=== PATIENT | female | born 1935 | race Caucasian/White ===

== ENCOUNTER → 2016-03-29 | Outpatient (CLI) | payer OTHER ==
[~2016-03-29] MED LIST: ARMOUR THYROID60 M1 PO; FOSAMAX 70 MG T70 MG PO; IBUPROFEN200 M2 PO; MAGNESIUM CITR100 MG PO; PROTONIX40 M1 PO; RESTORIL15 MG PO; TYLENOL325 MG PO; VITAMIN D1000 UNI1 PO
== END ==
LOC: RAD 14:10
DX: M47.814 Spondylosis without myelopathy or radiculopathy, thoracic region (principal); M47.816 Spondylosis without myelopathy or radiculopathy, lumbar region; M54.9 Dorsalgia, unspecified

== ENCOUNTER → 2016-07-04 | Outpatient (CLI) | payer OTHER | LOC: RAD 14:01 | DX: R05 Cough (principal) ==

== ENCOUNTER 2016-07-16 12:57 | Emergency (ER) | payer OTHER ==
[~2016-07-16] VITALS: Ht 160 cm; Wt 44.0 kg
[2016-07-16] MEDS ORDERED: PREDNISONE 20 M20 MG PO (14:21)
[2016-07-16] MEDS ORDERED: CYCLOBENZAPRINE5 MG PO (14:21)
[2016-07-16] MEDS ORDERED: CITRATE OF MAG296 ML PO (14:27)
[2016-07-17] MEDS ORDERED: CLARITIN10 MG PO (11:26)
[2016-07-17] MEDS ORDERED: NASACORT10.8 ML NS (11:27)
== END 2016-07-16 15:05 | disposition home or self-care (01) ==
LOC: ER 12:57
DX: M53.3 Sacrococcygeal disorders, not elsewhere classified (principal); K58.9 Irritable bowel syndrome, unspecified; E03.9 Hypothyroidism, unspecified; Z88.8 Allergy status to other drugs, medicaments and biological substances

== ENCOUNTER 2016-07-17 03:56 | Inpatient (IN) | payer OTHER ==
[~2016-07-17] VITALS: Ht 160 cm; Wt 62.3 kg
--- NOTE | ~2016-07-17 | HC ---
[facility] [address] CONSULTATION Name: MELISSA HALL Room #: 246-P [facility] IN ..#: [id number] Admission: 07/17/16 Attend Phys: Nalini Wyatt Discharge: 08/02/16 Date of : 39 Report #: [id number] THIS REPORT FOR: //name// CC: Nalini Pryor DATE OF SERVICE: 07/29/2016 ICU renal consultation per request of Dr. Mane Tarango. HISTORY OF PRESENT ILLNESS: This 81-year-old female has a complicated medical history which includes hypersensitivity pneumonitis with respiratory failure, sepsis syndrome, pulmonary embolism and recent development of C. diff colitis. We are requested to evaluate her metabolic parameters in the setting of multisystem organ failure. The patient is intubated and unable to provide any meaningful history. Chart review reveals evidence of hypersensitivity pneumonitis with progressive respiratory failure requiring intubation and mechanical ventilation. She has a complicated history which includes pneumonia as well as pulmonary embolism and sepsis syndrome. She has severe pulmonary hypertension with cor pulmonale. She has developed C. diff colitis with worsening of metabolic acidosis. She has severe protein calorie malnutrition. PAST MEDICAL HISTORY: Otherwise remarkable as described above for hypersensitivity pneumonitis, hypertension, coronary artery disease, compression fracture, irritable bowel syndrome and hypothyroidism. MEDICATIONS ON ADMISSION: Included prednisone 60 mg daily, cyclobenzaprine and magnesium citrate. FAMILY HISTORY, PERSONAL AND SOCIAL HISTORY AND REVIEW OF SYSTEMS: Not obtainable at this time. PHYSICAL EXAMINATION: GENERAL: Reveals an acutely and chronically ill elderly female who is unresponsive on the ventilator. VITAL SIGNS: Blood pressure 123/80, pulse 121, respirations 33, O2 saturation 96%. SKIN: Warm and dry. There is fair skin turgor noted. There is no gross clubbing or cyanosis present. HEENT: The head is normocephalic and atraumatic. There is an endotracheal tube in place. NECK: Supple. LUNGS: Mendoza reveal coarse rhonchi in all lung mendoza without evidence of consolidation to auscultation. [facility] [address] [place] [address] CONSULTATION Name: MELISSA HALL Room #: 246-P [facility] IN ..#: [id number] Admission: 07/17/16 Attend Phys: Nalini Wyatt Discharge: 08/02/16 Date of : 39 Report #: [id number] CARDIOVASCULAR: Reveals a resting tachycardia without gross murmur or rub. ABDOMEN: Soft and nontender, without palpable mass or organomegaly. NEUROLOGIC: Reveals the patient to be sedated with minimal responsiveness. LABORATORY STUDIES: Available at the time of consultation include sodium 144, potassium 4.1, chloride 105, CO2 40, BUN 41, creatinine 0.7. White blood cell count 16,600, hemoglobin 14.3, hematocrit 44.5, platelet count 240,000. Urinalysis reveals dark yellow urine, 1+ protein, 1+ bilirubin, arterial blood gases from the day of consultation include pH 7.22, pCO2 94, pO2 85.6, FIO2 55%. ASSESSMENT: 1. Respiratory acidosis with compensatory metabolic alkalosis. At this time, I would not administer acetazolamide as the patient is acidemic and this would likely worsen her overall acid base status. I would attempt to optimize her respiratory status to lower her pCO2 and acetazolamide may be indicated in the future. 2. Acute and chronic respiratory failure. 3. Hypersensitivity pneumonitis. 4. Multisystem organ compromise. 5. Clostridium difficile colitis. PLAN: Unfortunately, this patient has advanced multisystem organ disease and failure. I have discussed with the patient's her overall clinical status and he appreciates the severity of her illness and the fact that she will likely not recover from this illness. We will follow the patient daily and make appropriate medication and electrolyte adjustments as indicated. Thank you very much for this challenging consultation. Please see orders. <ELECTRONICALLY SIGNED> By: Jacob Gonzalez MD 08/05/16 1129 1211 1938 Jacob Gonzalez MD /nt
--- NOTE | ~2016-07-17 | 2DMMODE ---
[facility] [place] [address] 2 D/M-MODE ECHOCARDIOGRAM Name: MELISSA HALL Room #: 246-P [facility] IN .R.#: [id number] Admission: 07/17/16 Attend Phys: Giovanni Riggs, Discharge: Date of : 39 Date of Service: 07/24/16 1130 Report #: [id number] THIS REPORT FOR: //name// APPROVED REPORT Study performed: 07/24/2016 10:06:51 EXAM: Comprehensive 2D, Doppler, and color-flow Echocardiogram Patient Location: ICU Room #: 246 Blood Pressure: 110/56 mmHg HR: 91 bpm Other Information Study Quality: Good Indications Dyspnea 2D Dimensions RVDd: 38.94 mm LVEF(%): 71.83 (>50%) IVSd: 11.75 (7-11mm) LVOT Diam: 19.61 (18-24mm) LVDd: 36.68 mm PWd: 11.86 (7-11mm) Ascending Ao: 29.97 (22-36mm) LVDs: 21.91 (25-40mm) Aortic Root: 33.02 mm IVC: 26.00 mm Lawler's LVEF: 71.83 % Volumes Left Atrial Volume (Systole) Single Plane 4CH: 25.78 mL Single Plane 2CH: 21.88 mL LA ESV Index: 17.00 mL/m2 Aortic Valve AoV Peak Dale.: 1.72 m/s AO Peak Gr.: 11.83 mmHg LVOT Max P.07 mmHg LVOT Max V: 1.13 m/s Mitral Valve E/A Ratio: 0.5 MV Decel. Time: 217.37 ms MV E Max Dale.: 0.49 m/s [facility] [place] [address] [place] [address] 2 D/M-MODE ECHOCARDIOGRAM Name: MELISSA HALL Room #: 246-P [facility] IN ..#: [id number] Admission: 07/17/16 Attend Phys: Giovanni Riggs, Discharge: Date of : 39 Date of Service: 07/24/16 1130 Report #: [id number] MV A Dale.: 0.97 m/s MV PHT: 63.04 ms Pulmonary Valve PV Peak Dale.: 0.84 m/s PV Peak Gr.: 2.80 mmHg Pulmonary Vein P Vein S: 26.4 m/s P Vein D: 14.6 m/s P Vein A Dur.: 30.6 m/s Tricuspid Valve TR Peak Dale.: 3.27 m/s RAP Estimate: 15.00 mmHg TR Peak Gr.: 42.86 mmHg Left Ventricle The left ventricle is normal size. Flattened septum consistent with right ventricular pressure overload. There is normal left ventricular wall thickness. Left ventricular systolic function is hyperdynamic. LVEF is 65-70%. Grade I - abnormal relaxation pattern. Right Ventricle Right ventricle is dilated. Right ventricle is mildly hypokinetic. Atria The left atrium size is normal. Right atrium is dilated. Aortic Valve The aortic valve is normal in structure. Trace to mild aortic regurgitation. There is no aortic valvular stenosis. Mitral Valve The mitral valve is normal in structure. There is no mitral valve regurgitation noted. No evidence of mitral valve stenosis. Tricuspid Valve The tricuspid valve is normal in structure. There is no tricuspid valve stenosis. Mild to moderate tricuspid regurgitation. Pulmonic Valve The pulmonary valve is normal in structure. There is no pulmonic valvular regurgitation. Great Vessels The aortic root is normal in size. The inferior vena cava is dilated [place] [address] 2 D/M-MODE ECHOCARDIOGRAM Name: MELISSA HALL Room #: 246-P [facility] IN [facility]#: [id number] Admission: 07/17/16 Attend Phys: Giovanni Riggs, Discharge: Date of : 39 Date of Service: 07/24/16 1130 Report #: [id number] Pericardium There is a small anterior pericardial effusion. <Conclusion> The left ventricle is normal size. Flattened septum consistent with right ventricular pressure overload. LVEF is 65-70%. Right ventricle is dilated. Right ventricle is mildly hypokinetic. The aortic valve is normal in structure. The mitral valve is normal in structure. The tricuspid valve is normal in structure. Mild to moderate tricuspid regurgitation. The pulmonary valve is normal in structure. The inferior vena cava is dilated with no inspiratory collapse. There is a small anterior pericardial effusion. <ELECTRONICALLY SIGNED> By: Isaias Damian MD 07/24/16 1130 1130 1130 Isaias Damian MD /INF
--- NOTE | ~2016-07-17 | P ---
[facility] [place] [address] PROCEDURE REPORT Name: RAFAELMELISSA L Room #: 246-P [facility] IN M.R.#: [id number] Admission: 07/17/16 Attend Phys: Nalini Wyatt Discharge: Date of : 37 Report #: [id number] THIS REPORT FOR: //name// CC: Giovanni Pryor DATE OF SERVICE: 07/25/2016 DATE OF SERVICE: 07/25/2016. PROCEDURE: Right radial 20-gauge arterial catheter. INDICATION: Inadequate blood pressure monitoring on vasopressors, need for more accurate blood pressure measurements. DESCRIPTION OF PROCEDURE: After discussing the risks and benefits of planned procedure with the patient's , he desired to proceed. Right radial site was chosen. It was cleansed with 2% chlorhexidine gluconate. The site was then prepped using sterile towels, and using sterile technique and a 20 gauge Arrow arterial catheter kit, the artery was hit on the second attempt. The catheter was easily inserted without difficulty, good waveform on monitor. The catheter flushed and aspirated easily, sutured in place with 3-0 silk suture and then secured with a clear Op-Site. Good distal blood flow noted post-procedure. <ELECTRONICALLY SIGNED> By: Malcom Davila MD 08/01/16 1331 0846 33 Malcom Davila MD /nt
--- NOTE | ~2016-07-17 | O ---
[facility] [place] [address] OPERATIVE REPORT Name: RAFAELMELISSA L Room #: 246-P [facility] IN .R.#: [id number] Admission: 07/17/16 Attend Phys: Giovanni Riggs DO Discharge: Date of : 37 Report #: [id number] THIS REPORT FOR: //name// CC: Giovanni Pryor CLINICAL HISTORY: A 81-year-old white female with chronic interstitial lung disease, now with progressive hypoxia and respiratory failure. Urgent intubation was performed. The patient was given approximately 6 mL of Diprivan. She was bagged with a Ambu bag. A slide scope was then utilized to visualize the vocal cords. It was quite . We then utilized a Mac blade #3. The vocal cords were visualized. A 7.5 mm ET tube was then advanced. The capnography confirms presence of CO2. The ET tube was then secured at approximately 24 cm at the lip. Portable chest x-ray is pending. Vital signs , saturation did vary somewhat during the procedure, but it promptly improved once the ET tube was placed. <ELECTRONICALLY SIGNED> By: Jignesh Davidson MD 07/25/16 1146 1757 1858 Jignesh Davidson MD /nt
--- NOTE | ~2016-07-17 | HC ---
[facility] [place] [address] CONSULTATION Name: RAFAELMELISSA L Room #: 405-P [facility] IN M.R.#: [id number] Admission: 07/17/16 Attend Phys: Giovanni Riggs DO Discharge: Date of : 39 Report #: [id number] THIS REPORT FOR: //name// CC: Giovanni Pryor DATE OF SERVICE: 07/21/2016 REASON FOR CONSULTATION: Clostridium difficile colitis. HISTORY OF PRESENT ILLNESS: The patient is a 81-year-old white woman with chronic lung disease, recently treated with Augmentin, who is admitted through the emergency room with abdominal pain and diarrhea and diagnosed to have Clostridium difficile colitis. The patient apparently has developed a chronic lung disease, evaluated by Dr. Davila and also pulmonary physician at [facility], possibility of extrinsic allergic alveolitis entertained. At present, the patient is alert, having abdominal pain and not feeling quite well. DRUG ALLERGIES: None listed. MEDICATIONS: The patient is on treatment with vancomycin 125 mg 4 times daily, alprazolam p.r.n., albuterol inhalation treatment, fentanyl p.r.n., thyroid supplementation, hydrocodone p.r.n., temazepam p.r.n., ondansetron p.r.n. 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 SOCIAL HISTORY: See H and P, old records. FAMILY HISTORY: See H and P, old records. REVIEW OF SYSTEMS: As above. PHYSICAL EXAMINATION: GENERAL: Well-developed woman in no distress. VITAL SIGNS: Temperature 102.5 yesterday, 99.2 today; pulse 118, respirations 22, BP 171/93. HEENMT: Within range. NECK: Supple, no thyromegaly. BREASTS: Exam deferred. LUNGS: Rhonchi, crackles both lung paula. HEART: S1, S2. No gallop or murmur. [facility] [address] [place] [address] CONSULTATION Name: MELISSA HALL Room #: 405-P [facility] IN [facility].#: [id number] Admission: 07/17/16 Attend Phys: Giovanni Riggs DO Discharge: Date of : 39 Report #: [id number] ABDOMEN: Mildly distended, tympanitic on percussion and tender on palpation. PELVIC AND RECTAL: Deferred. EXTREMITIES: Some pretibial edema. NEUROLOGIC: Grossly within normal limits. LABORATORY DATA: Sodium 121, potassium 3.8, BUN 3, creatinine 0.5, glucose 119. WBC 9,600; hemoglobin 13.2 g/dL; platelets 222,000. The white blood cell count differential reveals 61% neutrophils, 6% bands, yesterday she had 25% bands. Serum IgE significantly elevated at 589 international units per milliliter. C. difficile toxin assay positive. ASSESSMENT: 1. Clostridium difficile colitis. 2. Pulmonary fibrosis, question extrinsic allergic alveolitis. Weight loss secondary to above. SUGGESTIONS: Recommending continue vancomycin and increase dose to 250 mg 4 times daily and add Flagyl 500 mg IV 2 times daily for a few days. Dr. Riggs and Dr. Davila, thank you for requesting my suggestions in the care of your patient. <ELECTRONICALLY SIGNED> By: Dominic Rodriguez MD 07/22/16 0628 1302 16 Dominic Rodriguez MD /nt
--- NOTE | ~2016-07-17 | HC ---
[facility] [place] [address] CONSULTATION Name: RAFAELMELISSA L Room #: 246-P [facility] IN M.R.#: [id number] Admission: 07/17/16 Attend Phys: Nalini Wyatt Discharge: Date of : 39 Report #: [id number] THIS REPORT FOR: //name// CC: Giovanni Inman DATE OF SERVICE: 07/21/2016 REFERRING PROVIDER: Giovanni Riggs DO REASON FOR CONSULTATION: Cough and pulmonary infiltrates. CHIEF COMPLAINT: Abdominal pain and diarrhea, nausea, general malaise. HISTORY OF PRESENT ILLNESS: Our group was asked to evaluate this patient in consultation while hospitalized at [facility], known to me from prior pulmonary workup for interstitial infiltrates, initially had findings of progressive nodule and reticular interstitial infiltrates, some laboratory abnormalities that suggested possible hypersensitivity pneumonitis as well as bronchioalveolar lavage, some lymphocyte predominance. Because of these, she did not undergo surgical lung biopsy. She was sent to Dr. Jaison Montenegro at [facility] for further evaluation. He had attempted twice to put her on CellCept and prophylaxis with Bactrim; however, she did not tolerate due to GI symptoms. She has been off therapy and has had some progressive decline in her pulmonary function studies. She called our office 10 days ago with complaints of increasing shortness of breath and productive cough with yellow sputum, was started on amoxicillin and clavulanic acid and day 8 or 10 started having the above symptoms of nausea, abdominal pain and bloating, presented to the emergency department, workup appears as found to C. difficile colitis, for which she is under care of the GI service. Of note, the patient started having cough again overnight with some brown sputum production. Denies any fevers, chills or sweats at this time; however, had a temperature of 102.5 yesterday. Currently, she complains of some abdominal discomfort and the cough as described. No significant shortness of breath. ALLERGIES: No known drug allergies. PAST MEDICAL HISTORY: 1. Pulmonary interstitial infiltrates, strongly suggestive of hypersensitivity pneumonitis. 2. C. difficile colitis, active, no prior history. 3. History of H. pylori infection. 4. Hypothyroidism. [facility] [address] [place] [address] CONSULTATION Name: RAFAELMELISSA L Room #: 246-P [facility] IN ..#: [id number] Admission: 07/17/16 Attend Phys: Naliin Wyatt Discharge: Date of : 39 Report #: [id number] 5. Osteopenia/porosis. 6. Allergic rhinitis. OUTPATIENT MEDICATIONS: Include recently Augmentin, Fosamax, temazepam, magnesium citrate, Tylenol, Thyroid Romney, loratadine, and triamcinolone. 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 FAMILY HISTORY: Noncontributory due to advanced age. REVIEW OF SYSTEMS: CONSTITUTIONAL: Fever, no chills or rigors. ENT: No upper respiratory congestion or rhinorrhea. CARDIOVASCULAR: No chest pains or palpitations. GASTROINTESTINAL: Some abdominal pain, blotting, nausea and foul-swelling diarrhea. GENITOURINARY: No dysuria, no frequency or hematuria. INTEGUMENT: Denies any rash. MUSCULOSKELETAL: She has some generalized weakness. No new joint pains or swelling. Rest of 12 point review of systems is normal except as described in HPI. PHYSICAL EXAMINATION: VITAL SIGNS: Afebrile, pulse 110 and regular, respiratory rate 18, blood pressure 117/72, oxygen saturation 92% on 2 liters. GENERAL: This is a very pleasant, thin, elderly woman who appears uncomfortable. ENT: Clear oropharynx. Mallampati 1 airway. NECK: Supple, no lymphadenopathy. LUNGS: Diffuse inspiratory crackles. CARDIOVASCULAR: Heart tachycardic, but regular. No murmurs noted. ABDOMEN: Soft, but distended and diffusely tender. EXTREMITIES: Without significant edema. INTEGUMENT: Without rash. LABORATORY DATA: White blood cell count 10,000, hemoglobin 13, hematocrit 40, platelet count 222. Sodium 129, potassium 3.8, chloride 95, bicarbonate 31, BUN 3, creatinine 0.5, and glucose 78. TSH 5.3, IgE was 589. sedimentation rate not performed. IMPRESSION: 1. Productive cough, worrisome for lower respiratory infection; however, given her Clostridium difficile colitis, we were not actively treat. Radiographs difficult to interpret due to underlying background of severe fibrotic lung diseases and may be difficult to manage further would suggest an infectious [address] [address] CONSULTATION Name: MELISSA HALL Room #: 246-P [facility] IN M.R.#: [id number] Admission: 07/17/16 Attend Phys: Nalini Wyatt Discharge: Date of : 39 Report #: [id number] disease consultation to assist with both antibiotics selection for Clostridium difficile colitis and potentially antibiotic selection for respiratory infection, add bronchodilators. 2. Clostridium difficile colitis. 3. Elevated IgE. 4. History of probable hypersensitivity pneumonitis due to mold exposure. We will consider other etiologies. 5. Anxiety. 6. Hypothyroidism. 7. Hyponatremia, suggest as outlined above. We will continue to follow with you, await chest radiograph. <ELECTRONICALLY SIGNED> By: Malcom Davila MD 07/31/16 1254 1619 0532 Malcom Davila MD /nt
[~2016-07-17 03:56] MED LIST changes: +CITRATE OF MAG296 ML PO; +CYCLOBENZAPRINE5 MG PO; +PREDNISONE 20 M20 MG PO
[2016-07-17 04:06] VITALS: BP 126/80
[2016-07-17 04:41] LABS: HEMATOCRIT 45.8 % (37.0-47.0); HEMOGLOBIN 15.6 gm/dL (12.0-15.0); MCH 29.2 pg (26.0-34.0); MCV 85.7 fL (80.0-100.0); PLATELET COUNT 231 thou/uL (150-400); RBC 5.34 mil/uL (4.20-5.00); RDW 14.4 % (10.5-14.5); WBC 12.6 thou/uL (4.0-11.0)
[2016-07-17 04:43] LABS: URINE BILIRUBIN NEGATIVE (Negative); URINE BLOOD 2+ (Negative); URINE COLOR YELLOW; URINE GLUCOSE-RANDOM* NEGATIVE (Negative); URINE KETONES 1+ (Negative); URINE LEUKOCYTES-REFLEX NEGATIVE (Negative); URINE PROTEIN (DIPSTICK) NEGATIVE (Negative); URINE UROBILINOGEN 0.2 E.U./dl (0.2-1.0)
[2016-07-17 04:44] LABS: MANUAL DIFF YES
[2016-07-17 05:05] LABS: ABSOLUTE NEUTROPHILS 11.3 thou/uL (1.4-8.2); TOTAL CELL COUNT 100
[2016-07-17 05:07] LABS: CASTS None Seen /LPF (None Seen); CRYSTALS None Seen /LPF (None Seen); SQUAMOUS None Seen /LPF (0-3); TRANSITIONAL EPITHEL CELL 0-3 Few /LPF (None Seen); URINE RBC 3-10 Few /HPF (0-2); URINE WBC-REFLEX None Seen /HPF (0-5)
[2016-07-17 05:11] LABS: ALBUMIN 3.4 g/dL (3.4-5.0); CREATININE 0.6 mg/dL (0.6-1.0); POTASSIUM 4.2 mmol/L (3.5-5.1); TOTAL BILIRUBIN 0.7 mg/dL (<0.1-1.0); TOTAL PROTEIN 7.1 g/dL (6.4-8.2)
[2016-07-17 08:08] VITALS: BP 114/62
[2016-07-17 09:00] VITALS: BP 135/82
[2016-07-17] MEDS ORDERED: CLARITIN10 MG PO (11:26)
[2016-07-17] MEDS ORDERED: NASACORT10.8 ML NS (11:27)
[2016-07-17 16:00] VITALS: BP 122/76
[2016-07-17 18:45] VITALS: BP 117/72
[2016-07-18 05:37] LABS: HEMATOCRIT 41.8 % (37.0-47.0); HEMOGLOBIN 13.9 gm/dL (12.0-15.0); MCH 29.1 pg (26.0-34.0); MCHC 33.2 g/dL (28.0-37.0); MCV 87.5 fL (80.0-100.0); PLATELET COUNT 202 thou/uL (150-400); RBC 4.78 mil/uL (4.20-5.00); RDW 14.4 % (10.5-14.5); WBC 7.2 thou/uL (4.0-11.0)
[2016-07-18 05:45] LABS: MANUAL DIFF YES
[2016-07-18 05:54] VITALS: BP 105/61
[2016-07-18 06:09] LABS: CALCIUM 7.9 mg/dL (8.5-10.1); CREATININE 0.5 mg/dL (0.6-1.0); POTASSIUM 3.9 mmol/L (3.5-5.1)
[2016-07-18 07:27] LABS: ABSOLUTE NEUTROPHILS 5.5 thou/uL (1.4-8.2); POIKILOCYTOSIS SLIGHT; TOTAL CELL COUNT 100
[2016-07-18 08:01] VITALS: BP 133/74
[2016-07-18 19:56] VITALS: BP 126/66
[2016-07-19 03:33] VITALS: BP 153/74
[2016-07-19 05:43] LABS: HEMATOCRIT 42.5 % (37.0-47.0); HEMOGLOBIN 13.9 gm/dL (12.0-15.0); MCH 28.6 pg (26.0-34.0); MCHC 32.7 g/dL (28.0-37.0); MCV 87.4 fL (80.0-100.0); PLATELET COUNT 210 thou/uL (150-400); RBC 4.87 mil/uL (4.20-5.00); RDW 14.4 % (10.5-14.5); WBC 7.4 thou/uL (4.0-11.0)
[2016-07-19 05:46] LABS: MANUAL DIFF YES
[2016-07-19 06:01] LABS: CREATININE 0.5 mg/dL (0.6-1.0); POTASSIUM 3.7 mmol/L (3.5-5.1)
[2016-07-19 07:09] LABS: ABSOLUTE NEUTROPHILS 4.9 thou/uL (1.4-8.2); TOTAL CELL COUNT 100
[2016-07-19 07:40] VITALS: BP 132/78
[2016-07-19 15:38] VITALS: BP 1401/82
[2016-07-19 21:00] VITALS: BP 125/78
[2016-07-20 04:26] VITALS: BP 154/87
[2016-07-20 06:11] LABS: HEMOGLOBIN 14.6 gm/dL (12.0-15.0); MCH 29.3 pg (26.0-34.0); MCV 86.3 fL (80.0-100.0); PLATELET COUNT 208 thou/uL (150-400); RBC 4.99 mil/uL (4.20-5.00); RDW 14.3 % (10.5-14.5); WBC 6.1 thou/uL (4.0-11.0)
[2016-07-20 06:17] LABS: MANUAL DIFF YES
[2016-07-20 06:23] LABS: CALCIUM 7.8 mg/dL (8.5-10.1); CREATININE 0.5 mg/dL (0.6-1.0); POTASSIUM 3.6 mmol/L (3.5-5.1)
[2016-07-20 07:48] VITALS: BP 112/65
[2016-07-20 09:21] LABS: ABSOLUTE NEUTROPHILS 4.4 thou/uL (1.4-8.2); PLATELET ESTIMATE NORMAL; TOTAL CELL COUNT 100
[2016-07-20 19:35] VITALS: BP 99/61
[2016-07-21 05:10] VITALS: BP 171/93
[2016-07-21 05:48] LABS: HEMATOCRIT 40.2 % (37.0-47.0); HEMOGLOBIN 13.2 gm/dL (12.0-15.0); MCH 28.3 pg (26.0-34.0); MCHC 32.7 g/dL (28.0-37.0); MCV 86.6 fL (80.0-100.0); PLATELET COUNT 222 thou/uL (150-400); RBC 4.65 mil/uL (4.20-5.00); RDW 14.4 % (10.5-14.5); WBC 9.6 thou/uL (4.0-11.0)
[2016-07-21 05:54] LABS: MANUAL DIFF YES
[2016-07-21 05:56] LABS: CREATININE 0.5 mg/dL (0.6-1.0); POTASSIUM 3.8 mmol/L (3.5-5.1)
[2016-07-21 08:43] LABS: ABSOLUTE NEUTROPHILS 6.4 thou/uL (1.4-8.2); TOTAL CELL COUNT 100
[2016-07-21 08:44] LABS: ANISOCYTOSIS SLIGHT
[2016-07-21 09:18] VITALS: BP 117/72
[2016-07-21 16:00] VITALS: BP 109/64
[2016-07-21 19:45] VITALS: BP 109/58
[2016-07-22] VITALS (49 sets, daily range): BP systolic 90–149; BP diastolic 57–110
[2016-07-22 04:02] LABS: HEMATOCRIT 39.1 % (37.0-47.0); HEMOGLOBIN 12.9 gm/dL (12.0-15.0); MANUAL DIFF YES; MCH 28.5 pg (26.0-34.0); MCV 86.4 fL (80.0-100.0); PLATELET COUNT 229 thou/uL (150-400); RBC 4.52 mil/uL (4.20-5.00); RDW 14.6 % (10.5-14.5)
[2016-07-22 04:14] LABS: CALCIUM 7.5 mg/dL (8.5-10.1); CREATININE 0.4 mg/dL (0.6-1.0); POTASSIUM 3.6 mmol/L (3.5-5.1)
[2016-07-22 07:20] LABS: ABSOLUTE NEUTROPHILS 8.1 thou/uL (1.4-8.2); METAMYELOCYTES 1 %; TOTAL CELL COUNT 100
[2016-07-22 14:48] LABS: HEMATOCRIT 46.3 % (37.0-47.0); MCH 28.7 pg (26.0-34.0); MCHC 33.5 g/dL (28.0-37.0); MCV 85.9 fL (80.0-100.0); PLATELET COUNT 255 thou/uL (150-400); RBC 5.39 mil/uL (4.20-5.00); RDW 14.8 % (10.5-14.5); WBC 17.4 thou/uL (4.0-11.0)
[2016-07-22 14:57] LABS: MANUAL DIFF YES
[2016-07-22 15:01] LABS: HEMOGLOBIN 15.5 gm/dL (12.0-15.0)
[2016-07-22 15:03] LABS: ALBUMIN 2.3 g/dL (3.4-5.0); APTT 26.1 Seconds (24.5-32.8); CREATININE 0.4 mg/dL (0.6-1.0); FIBRINOGEN 314.7 mg/dL (210-360); INR 1.1; PROTIME 11.5 Seconds (9.3-11.4); TOTAL BILIRUBIN 0.5 mg/dL (<0.1-1.0); TOTAL PROTEIN 6.1 g/dL (6.4-8.2)
[2016-07-22 15:04] LABS: POTASSIUM 2.9 mmol/L (3.5-5.1)
[2016-07-22 15:05] LABS: URINE BILIRUBIN NEGATIVE (Negative); URINE BLOOD 1+ (Negative); URINE COLOR YELLOW; URINE GLUCOSE-RANDOM* NEGATIVE (Negative); URINE KETONES NEGATIVE (Negative); URINE NITRITE NEGATIVE (Negative); URINE PROTEIN (DIPSTICK) NEGATIVE (Negative); URINE UROBILINOGEN 0.2 E.U./dl (0.2-1.0)
[2016-07-22 15:07] LABS: SQUAMOUS 0-3 Few /LPF (0-3); URINE WBC None Seen /HPF (0-5)
[2016-07-22 15:08] LABS: BACTERIA None Seen /HPF (None Seen); CASTS None Seen /LPF (None Seen); CRYSTALS None Seen /LPF (None Seen); URINE RBC 0-2 Rare /HPF (0-2)
[2016-07-22 15:08] LABS: ABG SAMPLE TYPE ARTERIAL; BE(vivo) 9.1 mmol/L (-2 to +3); HCO3 35.8 mmol/L (22.0-26.0); LACTATE 1.29 mmol/L (0.5-2.0); O2(CT) 20.5 mL/dL (15.0-23.0); O2Hb 92.5 % (92.0-98.0); PCO2 56.2 mmHg (35.0-45.0); PO2 69.3 mmHg (80.0-100.0); STICK SITE L.RADIAL; pH 7.422 (7.360-7.450); sO2 93.9 % (92.0-98.0); tCO2 37.5 mmol/L (24.0-30.0)
[2016-07-22 15:18] LABS: ABSOLUTE NEUTROPHILS 14.6 thou/uL (1.4-8.2); TOTAL CELL COUNT 100
[2016-07-22 15:20] LABS: ABG SAMPLE TYPE VENOUS; BE(vivo) 11.8 mmol/L (-2 to +3); LACTATE 1.34 mmol/L (0.5-2.0); O2(CT) 16.1 mL/dL (15.0-23.0); O2Hb VENOUS 76.7 (65.0-85.0); PCO2 VENOUS 67.1 mmHg (41.0-51.0); PO2 VENOUS 39.2 mmHg (35.0-45.0); STICK SITE LINE; sO2 VENOUS 71.5 % (65.0-85.0)
[2016-07-22 18:16] LABS: CALCIUM 7.7 mg/dL (8.5-10.1); CREATININE 0.6 mg/dL (0.6-1.0); POTASSIUM 3.4 mmol/L (3.5-5.1)
[2016-07-22 19:05] LABS: APTT 29.2 Seconds (24.5-32.8); FIBRINOGEN 263.6 mg/dL (210-360); INR 1.2; PROTIME 12.5 Seconds (9.3-11.4)
[2016-07-22 22:03] LABS: CREATININE 0.5 mg/dL (0.6-1.0); POTASSIUM 3.6 mmol/L (3.5-5.1)
[2016-07-22 22:11] LABS: INR 1.2; PROTIME 12.6 Seconds (9.3-11.4)
[2016-07-23] VITALS (77 sets, daily range): BP systolic 56–148; BP diastolic 42–112
[2016-07-23 03:00] LABS: HEMOGLOBIN 14.5 gm/dL (12.0-15.0); WBC 17.7 thou/uL (4.0-11.0)
[2016-07-23 03:01] LABS: HEMATOCRIT 43.9 % (37.0-47.0); MCH 28.6 pg (26.0-34.0); MCHC 33.1 g/dL (28.0-37.0); MCV 86.2 fL (80.0-100.0); PLATELET COUNT 259 thou/uL (150-400); RBC 5.09 mil/uL (4.20-5.00); RDW 14.5 % (10.5-14.5)
[2016-07-23 03:09] LABS: MANUAL DIFF YES
[2016-07-23 03:12] LABS: ALBUMIN 1.9 g/dL (3.4-5.0); CALCIUM 8.1 mg/dL (8.5-10.1); CREATININE 0.5 mg/dL (0.6-1.0); PHOSPHORUS 3.3 mg/dL (2.5-4.9); POTASSIUM 3.4 mmol/L (3.5-5.1)
[2016-07-23 03:54] LABS: ABSOLUTE NEUTROPHILS 14.9 thou/uL (1.4-8.2); TOTAL CELL COUNT 100
[2016-07-23 03:55] LABS: TOXIC GRANULATION 1+
[2016-07-23 06:08] LABS: ABG SAMPLE TYPE ARTERIAL; BE(vivo) 12.1 mmol/L (-2 to +3); LACTATE 1.15 mmol/L (0.5-2.0); O2(CT) 19.4 mL/dL (15.0-23.0); O2Hb 90.8 % (92.0-98.0); PCO2 58.9 mmHg (35.0-45.0); PO2 64.1 mmHg (80.0-100.0); pH 7.439 (7.360-7.450); sO2 92.7 % (92.0-98.0); tCO2 40.8 mmol/L (24.0-30.0)
[2016-07-23 06:09] LABS: STICK SITE L.RADIAL
[2016-07-23 18:45] LABS: ABG SAMPLE TYPE ARTERIAL; HCO3 37.3 mmol/L (22.0-26.0); LACTATE 1.05 mmol/L (0.5-2.0); O2(CT) 21.9 mL/dL (15.0-23.0); O2Hb 98.5 % (92.0-98.0); pH 7.365 (7.360-7.450); sO2 99.7 % (92.0-98.0); tCO2 39.4 mmol/L (24.0-30.0)
[2016-07-23 18:46] LABS: ABG COMMENT CMV; PCO2 66.8 mmHg (35.0-45.0); STICK SITE L.BRACHIAL; TIDAL VOLUME 400 ml
[2016-07-24] VITALS (70 sets, daily range): BP systolic 68–145; BP diastolic 46–94
[2016-07-24 03:47] LABS: HEMATOCRIT 42.6 % (37.0-47.0); HEMOGLOBIN 13.9 gm/dL (12.0-15.0); MCHC 32.5 g/dL (28.0-37.0); MCV 86.2 fL (80.0-100.0); PLATELET COUNT 239 thou/uL (150-400); RBC 4.95 mil/uL (4.20-5.00); RDW 14.6 % (10.5-14.5); WBC 28.2 thou/uL (4.0-11.0)
[2016-07-24 03:51] LABS: MANUAL DIFF YES
[2016-07-24 04:25] LABS: ALBUMIN 1.9 g/dL (3.4-5.0); CALCIUM 8.1 mg/dL (8.5-10.1); CREATININE 0.6 mg/dL (0.6-1.0); POTASSIUM 4.4 mmol/L (3.5-5.1); TOTAL BILIRUBIN 0.5 mg/dL (<0.1-1.0); TOTAL PROTEIN 4.8 g/dL (6.4-8.2)
[2016-07-24 05:26] LABS: ABSOLUTE NEUTROPHILS 25.9 thou/uL (1.4-8.2); TOTAL CELL COUNT 100; TOXIC GRANULATION 1+
[2016-07-24 17:46] LABS: ABG SAMPLE TYPE ARTERIAL; BE(vivo) 4.8 mmol/L (-2 to +3); HCO3 30.9 mmol/L (22.0-26.0); O2(CT) 20.1 mL/dL (15.0-23.0); O2Hb 94.1 % (92.0-98.0); PCO2 51.3 mmHg (35.0-45.0); PO2 77.9 mmHg (80.0-100.0); pH 7.398 (7.360-7.450); sO2 95.3 % (92.0-98.0); tCO2 32.5 mmol/L (24.0-30.0)
[2016-07-24 17:47] LABS: ABG COMMENT NO COMPLICATIONS; STICK SITE L.RADIAL; TIDAL VOLUME 400 ml
[2016-07-24 18:01] LABS: ABG SAMPLE TYPE VENOUS; BE(vivo) 4.1 mmol/L (-2 to +3); HCO3 31.4 mmol/L (22.0-26.0); LACTATE 1.78 mmol/L (0.5-2.0); O2(CT) 13.3 mL/dL (15.0-23.0); O2Hb VENOUS 63.1 (65.0-85.0); PCO2 VENOUS 57.7 mmHg (41.0-51.0); PO2 VENOUS 35.3 mmHg (35.0-45.0); STICK SITE LINE; TIDAL VOLUME 400 ml; sO2 VENOUS 63.6 % (65.0-85.0); tCO2 33.1 mmol/L (24.0-30.0)
[2016-07-24 18:41] LABS: HEMATOCRIT 43.9 % (37.0-47.0); HEMOGLOBIN 14.1 gm/dL (12.0-15.0); MCHC 32.2 g/dL (28.0-37.0); MCV 87.2 fL (80.0-100.0); PLATELET COUNT 224 thou/uL (150-400); RBC 5.04 mil/uL (4.20-5.00); WBC 25.4 thou/uL (4.0-11.0)
[2016-07-24 18:44] LABS: CALCIUM 7.9 mg/dL (8.5-10.1); CREATININE 0.9 mg/dL (0.6-1.0); MANUAL DIFF YES; POTASSIUM 3.9 mmol/L (3.5-5.1)
[2016-07-24 18:48] LABS: ALBUMIN 1.7 g/dL (3.4-5.0); TOTAL BILIRUBIN 0.5 mg/dL (<0.1-1.0)
[2016-07-24 18:52] LABS: APTT 40.6 Seconds (24.5-32.8); INR 1.6; PROTIME 16.8 Seconds (9.3-11.4)
[2016-07-24 19:11] LABS: ABSOLUTE NEUTROPHILS 23.9 thou/uL (1.4-8.2); TOTAL CELL COUNT 100
[2016-07-24 19:12] LABS: ANISOCYTOSIS 1+; POIKILOCYTOSIS SLIGHT; POLYCHROMASIA OCCASIONAL
[2016-07-24 19:17] LABS: ABG SAMPLE TYPE VENOUS; BE(vivo) 4.4 mmol/L (-2 to +3); HCO3 31.4 mmol/L (22.0-26.0); LACTATE 1.95 mmol/L (0.5-2.0); O2(CT) 14.3 mL/dL (15.0-23.0); O2Hb VENOUS 66.7 (65.0-85.0); PCO2 VENOUS 55.9 mmHg (41.0-51.0); PO2 VENOUS 36.7 mmHg (35.0-45.0); tCO2 33.1 mmol/L (24.0-30.0)
[2016-07-24 19:18] LABS: ABG COMMENT CMV; STICK SITE PICC; TIDAL VOLUME 400 ml
[2016-07-24 20:15] LABS: ABG COMMENT CMV; ABG SAMPLE TYPE VENOUS; BE(vivo) -1.3 mmol/L (-2 to +3); HCO3 25.4 mmol/L (22.0-26.0); LACTATE 1.42 mmol/L (0.5-2.0); O2(CT) 13.9 mL/dL (15.0-23.0); O2Hb VENOUS 74.2 (65.0-85.0); PCO2 VENOUS 50.7 mmHg (41.0-51.0); PO2 VENOUS 43.3 mmHg (35.0-45.0); STICK SITE PICC; TIDAL VOLUME 400 ml; sO2 VENOUS 74.7 % (65.0-85.0)
[2016-07-24 21:22] LABS: ABG SAMPLE TYPE VENOUS; BE(vivo) 4.1 mmol/L (-2 to +3); HCO3 31.6 mmol/L (22.0-26.0); LACTATE 1.93 mmol/L (0.5-2.0); O2(CT) 15.4 mL/dL (15.0-23.0); O2Hb VENOUS 71.7 (65.0-85.0); PCO2 VENOUS 58.8 mmHg (41.0-51.0); PO2 VENOUS 41.1 mmHg (35.0-45.0); STICK SITE PICC; TIDAL VOLUME 400 ml; sO2 VENOUS 72.7 % (65.0-85.0); tCO2 33.4 mmol/L (24.0-30.0)
[2016-07-24 21:23] LABS: ABG COMMENT CMV
[2016-07-24 22:06] LABS: ABG SAMPLE TYPE VENOUS; BE(vivo) 5.2 mmol/L (-2 to +3); HCO3 32.7 mmol/L (22.0-26.0); LACTATE 2.05 mmol/L (0.5-2.0); O2(CT) 11.5 mL/dL (15.0-23.0); PCO2 VENOUS 59.8 mmHg (41.0-51.0); PO2 VENOUS 30.9 mmHg (35.0-45.0); sO2 VENOUS 54.9 % (65.0-85.0); tCO2 34.6 mmol/L (24.0-30.0)
[2016-07-24 22:07] LABS: O2Hb VENOUS 54.5 (65.0-85.0); STICK SITE PICC; TIDAL VOLUME 400 ml
[2016-07-24 22:42] LABS: URINE BILIRUBIN 1+ (Negative); URINE BLOOD NEGATIVE (Negative); URINE GLUCOSE-RANDOM* NEGATIVE (Negative); URINE KETONES TRACE (Negative); URINE NITRITE POSITIVE (Negative); URINE PROTEIN (DIPSTICK) 1+ (Negative); URINE SPECIFIC GRAVITY >= 1.030 (1.003-1.035)
[2016-07-24 22:44] LABS: ICTOTEST (BILI CONFIRMATORY) Negative (Negative); URINE COLOR DARK YELLOW
[2016-07-24 22:52] LABS: CASTS None Seen /LPF (None Seen); SQUAMOUS None Seen /LPF (0-3)
[2016-07-24 22:53] LABS: BACTERIA 1-9 Few /HPF (None Seen); CRYSTALS None Seen /LPF (None Seen); URINE RBC None Seen /HPF (0-2); URINE WBC 0-5 Rare /HPF (0-5)
[2016-07-24 22:55] LABS: CALCIUM 7.9 mg/dL (8.5-10.1); CREATININE 0.9 mg/dL (0.6-1.0); POTASSIUM 3.9 mmol/L (3.5-5.1)
[2016-07-24 23:00] LABS: APTT 38.7 Seconds (24.5-32.8); INR 1.6; PROTIME 16.2 Seconds (9.3-11.4)
[2016-07-24 23:11] LABS: BE(vivo) 4.6 mmol/L (-2 to +3); HCO3 32.3 mmol/L (22.0-26.0); LACTATE 1.91 mmol/L (0.5-2.0); O2(CT) 15.1 mL/dL (15.0-23.0); O2Hb VENOUS 69.3 (65.0-85.0); PCO2 VENOUS 60.3 mmHg (41.0-51.0); sO2 VENOUS 69.4 % (65.0-85.0); tCO2 34.2 mmol/L (24.0-30.0)
[2016-07-24 23:12] LABS: ABG SAMPLE TYPE VENOUS; STICK SITE LINE; TIDAL VOLUME 400 ml
[2016-07-25] VITALS (86 sets, daily range): BP systolic 65–161; BP diastolic 44–139
[2016-07-25 03:27] LABS: CALCIUM 7.7 mg/dL (8.5-10.1); CREATININE 0.8 mg/dL (0.6-1.0); POTASSIUM 3.9 mmol/L (3.5-5.1)
[2016-07-25 03:29] LABS: APTT 46.9 Seconds (24.5-32.8); INR 1.4; PROTIME 14.8 Seconds (9.3-11.4)
[2016-07-25 06:48] LABS: HEMATOCRIT 40.5 % (37.0-47.0); HEMOGLOBIN 13.4 gm/dL (12.0-15.0); MCH 28.5 pg (26.0-34.0); MCHC 33.1 g/dL (28.0-37.0); MCV 86.1 fL (80.0-100.0); PLATELET COUNT 207 thou/uL (150-400); RDW 14.7 % (10.5-14.5); WBC 18.7 thou/uL (4.0-11.0)
[2016-07-25 06:49] LABS: MANUAL DIFF YES
[2016-07-25 06:58] LABS: CALCIUM 7.6 mg/dL (8.5-10.1); CREATININE 0.8 mg/dL (0.6-1.0); POTASSIUM 3.9 mmol/L (3.5-5.1)
[2016-07-25 07:06] LABS: APTT 44.4 Seconds (24.5-32.8); FIBRINOGEN 361.2 mg/dL (210-360); INR 1.3; PROTIME 13.4 Seconds (9.3-11.4)
[2016-07-25 09:15] LABS: ABG SAMPLE TYPE ARTERIAL; BE(vivo) 3.4 mmol/L (-2 to +3); HCO3 29.2 mmol/L (22.0-26.0); LACTATE 1.67 mmol/L (0.5-2.0); O2(CT) 17.8 mL/dL (15.0-23.0); O2Hb 94.3 % (92.0-98.0); PCO2 49.2 mmHg (35.0-45.0); PO2 79.5 mmHg (80.0-100.0); STICK SITE LINE; TIDAL VOLUME 400 ml; pH 7.391 (7.360-7.450); sO2 95.5 % (92.0-98.0); tCO2 30.7 mmol/L (24.0-30.0)
[2016-07-25 09:19] LABS: ABSOLUTE NEUTROPHILS 16.6 thou/uL (1.4-8.2); ANISOCYTOSIS SLIGHT; ATYPICAL LYMPHS 1 %; TOTAL CELL COUNT 100
[2016-07-25 15:06] LABS: KAPPA FREE LIGHT CHAINS 14.05 mg/L (3.30-19.40); KAPPA/LAMBDA RATIO 1.41 (0.26-1.65); LAMBDA FREE LIGHT CHAINS 9.97 mg/L (5.71-26.30)
[2016-07-26] VITALS (79 sets, daily range): BP systolic 83–140; BP diastolic 51–79
[2016-07-26 05:29] LABS: HEMATOCRIT 38.6 % (37.0-47.0); HEMOGLOBIN 12.7 gm/dL (12.0-15.0); MCH 28.4 pg (26.0-34.0); MCHC 32.9 g/dL (28.0-37.0); MCV 86.3 fL (80.0-100.0); PLATELET COUNT 169 thou/uL (150-400); RBC 4.47 mil/uL (4.20-5.00); RDW 14.8 % (10.5-14.5)
[2016-07-26 05:37] LABS: MANUAL DIFF YES
[2016-07-26 05:48] LABS: ALBUMIN 1.6 g/dL (3.4-5.0); CALCIUM 8.2 mg/dL (8.5-10.1); CREATININE 0.6 mg/dL (0.6-1.0); MAGNESIUM 1.9 mg/dL (1.8-2.4); POTASSIUM 4.2 mmol/L (3.5-5.1); TOTAL BILIRUBIN 0.2 mg/dL (<0.1-1.0); TROPONIN-I 0.25 ng/mL (<0.04-0.07)
[2016-07-26 08:39] LABS: ABSOLUTE NEUTROPHILS 13.2 thou/uL (1.4-8.2); TOTAL CELL COUNT 100
[2016-07-26 08:42] LABS: ANISOCYTOSIS SLIGHT
[2016-07-26 10:07] LABS: GLOMERULR BASEM MEMBRN AB 2 units (0-20)
[2016-07-26 16:09] LABS: c-ANCA <1:20 titer (Neg:<1:20); p-ANCA <1:20 titer (Neg:<1:20)
[2016-07-27] VITALS (16 sets, daily range): BP systolic 79–118; BP diastolic 50–70
[2016-07-27 04:34] LABS: ABG SAMPLE TYPE ARTERIAL; LACTATE 1.05 mmol/L (0.5-2.0); O2(CT) 18.9 mL/dL (15.0-23.0); O2Hb 95.1 % (92.0-98.0); PCO2 64.3 mmHg (35.0-45.0); PO2 87.3 mmHg (80.0-100.0); sO2 94.6 % (92.0-98.0); tCO2 27.9 mmol/L (24.0-30.0)
[2016-07-27 04:35] LABS: STICK SITE LINE; TIDAL VOLUME 350 ml; pH 7.224 (7.360-7.450)
[2016-07-27 04:42] LABS: HEMATOCRIT 41.1 % (37.0-47.0); HEMOGLOBIN 13.4 gm/dL (12.0-15.0); MCH 28.4 pg (26.0-34.0); MCHC 32.6 g/dL (28.0-37.0); MCV 87.2 fL (80.0-100.0); RBC 4.72 mil/uL (4.20-5.00); RDW 14.8 % (10.5-14.5); WBC 18.6 thou/uL (4.0-11.0)
[2016-07-27 04:46] LABS: INR 1.1; PROTIME 10.9 Seconds (9.3-11.4)
[2016-07-27 04:54] LABS: ALBUMIN 1.7 g/dL (3.4-5.0); CALCIUM 8.4 mg/dL (8.5-10.1); CREATININE 0.7 mg/dL (0.6-1.0); MAGNESIUM 1.9 mg/dL (1.8-2.4); POTASSIUM 4.5 mmol/L (3.5-5.1); TOTAL BILIRUBIN 0.2 mg/dL (<0.1-1.0); TOTAL PROTEIN 5.1 g/dL (6.4-8.2); TROPONIN-I 0.17 ng/mL (<0.04-0.07)
[2016-07-27 07:05] LABS: ABG SAMPLE TYPE ARTERIAL; BE(vivo) 0.7 mmol/L (-2 to +3); HCO3 30.3 mmol/L (22.0-26.0); LACTATE 1.22 mmol/L (0.5-2.0); O2(CT) 19.2 mL/dL (15.0-23.0); O2Hb 93.9 % (92.0-98.0); PO2 81.4 mmHg (80.0-100.0); sO2 93.6 % (92.0-98.0); tCO2 32.5 mmol/L (24.0-30.0)
[2016-07-27 07:06] LABS: PCO2 72.6 mmHg (35.0-45.0); STICK SITE LINE; TIDAL VOLUME 350 ml; pH 7.238 (7.360-7.450)
[2016-07-27 12:11] LABS: ABG SAMPLE TYPE ARTERIAL; BE(vivo) 0.5 mmol/L (-2 to +3); HCO3 29.3 mmol/L (22.0-26.0); LACTATE 1.24 mmol/L (0.5-2.0); O2(CT) 18.9 mL/dL (15.0-23.0); O2Hb 96.2 % (92.0-98.0); PO2 98.6 mmHg (80.0-100.0); sO2 96.3 % (92.0-98.0); tCO2 31.4 mmol/L (24.0-30.0)
[2016-07-27 12:12] LABS: STICK SITE LINE; TIDAL VOLUME 350 ml; pH 7.259 (7.360-7.450)
[2016-07-28] VITALS (10 sets, daily range): BP systolic 68–117; BP diastolic 46–71
[2016-07-28 05:33] LABS: ABG SAMPLE TYPE ARTERIAL; HCO3 32.4 mmol/L (22.0-26.0); LACTATE 0.95 mmol/L (0.5-2.0); O2(CT) 20.4 mL/dL (15.0-23.0); O2Hb 94.6 % (92.0-98.0); PCO2 79.6 mmHg (35.0-45.0); STICK SITE LINE; pH 7.228 (7.360-7.450); sO2 93.7 % (92.0-98.0); tCO2 34.9 mmol/L (24.0-30.0)
[2016-07-28 05:34] LABS: TIDAL VOLUME 350 ml
[2016-07-28 05:42] LABS: HEMATOCRIT 45.3 % (37.0-47.0); HEMOGLOBIN 14.5 gm/dL (12.0-15.0); MCH 28.3 pg (26.0-34.0); MCV 88.6 fL (80.0-100.0); RBC 5.11 mil/uL (4.20-5.00); RDW 14.9 % (10.5-14.5); WBC 17.8 thou/uL (4.0-11.0)
[2016-07-28 05:57] LABS: CALCIUM 8.9 mg/dL (8.5-10.1); CREATININE 0.7 mg/dL (0.6-1.0); POTASSIUM 4.3 mmol/L (3.5-5.1)
[2016-07-28 14:41] LABS: ABG SAMPLE TYPE ARTERIAL; BE(vivo) 1.3 mmol/L (-2 to +3); HCO3 34.4 mmol/L (22.0-26.0); LACTATE 0.98 mmol/L (0.5-2.0); O2(CT) 20.7 mL/dL (15.0-23.0); PCO2 104.8 mmHg (35.0-45.0); PO2 85.5 mmHg (80.0-100.0); pH 7.134 (7.360-7.450); sO2 92.3 % (92.0-98.0); tCO2 37.6 mmol/L (24.0-30.0)
[2016-07-28 14:42] LABS: ABG COMMENT A/C; STICK SITE LINE; TIDAL VOLUME 350 ml
[2016-07-28 17:55] LABS: ABG SAMPLE TYPE ARTERIAL; BE(vivo) 7.2 mmol/L (-2 to +3); HCO3 38.5 mmol/L (22.0-26.0); LACTATE 1.68 mmol/L (0.5-2.0); O2(CT) 20.4 mL/dL (15.0-23.0); O2Hb 95.1 % (92.0-98.0); PCO2 89.9 mmHg (35.0-45.0); PO2 88.3 mmHg (80.0-100.0); STICK SITE LINE; pH 7.249 (7.360-7.450); sO2 94.7 % (92.0-98.0); tCO2 41.2 mmol/L (24.0-30.0)
[2016-07-28 17:56] LABS: TIDAL VOLUME 350 ml
[2016-07-29] VITALS (24 sets, daily range): BP systolic 88–132; BP diastolic 50–80
[2016-07-29 03:36] LABS: HEMATOCRIT 44.5 % (37.0-47.0); HEMOGLOBIN 14.3 gm/dL (12.0-15.0); MCH 28.4 pg (26.0-34.0); MCHC 32.2 g/dL (28.0-37.0); MCV 88.4 fL (80.0-100.0); RBC 5.03 mil/uL (4.20-5.00); WBC 16.6 thou/uL (4.0-11.0)
[2016-07-29 03:53] LABS: ALBUMIN 1.9 g/dL (3.4-5.0); ALKALINE PHOSPHATASE 74 U/L (46-116); ANION GAP < 0 mmol/L (7-16); BUN 41 mg/dL (7-18); CALCIUM 8.8 mg/dL (8.5-10.1); CHLORIDE 105 mmol/L (98-107); CO2 40 mmol/L (21-32); CREATININE 0.7 mg/dL (0.6-1.0); GLUCOSE 176 mg/dL (74-106); MAGNESIUM 2.2 mg/dL (1.8-2.4); POTASSIUM 4.1 mmol/L (3.5-5.1); SGOT 24 U/L (15-37); SGPT 23 U/L (30-65); SODIUM 144 mmol/L (136-145); TOTAL BILIRUBIN 0.2 mg/dL (<0.1-1.0); TOTAL PROTEIN 5.3 g/dL (6.4-8.2)
[2016-07-29 05:28] LABS: ABG SAMPLE TYPE ARTERIAL; BE(vivo) 6.4 mmol/L (-2 to +3); LACTATE 1.04 mmol/L (0.5-2.0); O2(CT) 19.8 mL/dL (15.0-23.0); O2Hb 94.3 % (92.0-98.0); PO2 85.6 mmHg (80.0-100.0); sO2 93.9 % (92.0-98.0); tCO2 40.8 mmol/L (24.0-30.0)
[2016-07-29 05:29] LABS: FIO2 55 %; STICK SITE LINE; TIDAL VOLUME 350 ml; pH 7.224 (7.360-7.450)
[2016-07-30] VITALS (17 sets, daily range): BP systolic 95–146; BP diastolic 50–82
[2016-07-30 02:56] LABS: HEMOGLOBIN 14.3 gm/dL (12.0-15.0); MCH 28.3 pg (26.0-34.0); MCHC 31.7 g/dL (28.0-37.0); MCV 89.1 fL (80.0-100.0); PLATELET COUNT 307 thou/uL (150-400); RBC 5.05 mil/uL (4.20-5.00); RDW 15.3 % (10.5-14.5); WBC 17.8 thou/uL (4.0-11.0)
[2016-07-30 02:57] LABS: MANUAL DIFF YES
[2016-07-30 03:09] LABS: ALBUMIN 1.9 g/dL (3.4-5.0); ALKALINE PHOSPHATASE 72 U/L (46-116); ANION GAP < 0 mmol/L (7-16); BUN 50 mg/dL (7-18); CALCIUM 9.1 mg/dL (8.5-10.1); CHLORIDE 107 mmol/L (98-107); CO2 40 mmol/L (21-32); CREATININE 0.7 mg/dL (0.6-1.0); GLUCOSE 175 mg/dL (74-106); MAGNESIUM 2.4 mg/dL (1.8-2.4); PHOSPHORUS 2.4 mg/dL (2.5-4.9); POTASSIUM 4.8 mmol/L (3.5-5.1); SGOT 18 U/L (15-37); SGPT 21 U/L (30-65); SODIUM 146 mmol/L (136-145); TOTAL BILIRUBIN 0.2 mg/dL (<0.1-1.0); TOTAL PROTEIN 5.2 g/dL (6.4-8.2)
[2016-07-30 03:23] LABS: ABSOLUTE NEUTROPHILS 17.1 thou/uL (1.4-8.2); TOTAL CELL COUNT 100
[2016-07-30 05:30] LABS: ABG SAMPLE TYPE ARTERIAL; BE(vivo) 6.2 mmol/L (-2 to +3); HCO3 36.8 mmol/L (22.0-26.0); LACTATE 0.92 mmol/L (0.5-2.0); O2(CT) 19.6 mL/dL (15.0-23.0); O2Hb 94.6 % (92.0-98.0); PO2 85.2 mmHg (80.0-100.0); sO2 94.3 % (92.0-98.0); tCO2 39.4 mmol/L (24.0-30.0)
[2016-07-30 05:32] LABS: PCO2 85.2 mmHg (35.0-45.0); STICK SITE LINE; TIDAL VOLUME 350 ml; pH 7.253 (7.360-7.450)
[2016-07-31] VITALS (24 sets, daily range): BP systolic 85–140; BP diastolic 52–77
[2016-07-31 05:44] LABS: HEMOGLOBIN 12.8 gm/dL (12.0-15.0); MCH 28.2 pg (26.0-34.0); MCHC 32.1 g/dL (28.0-37.0); MCV 87.8 fL (80.0-100.0); RBC 4.55 mil/uL (4.20-5.00); RDW 15.1 % (10.5-14.5); WBC 21.6 thou/uL (4.0-11.0)
[2016-07-31 05:54] LABS: ALBUMIN 1.7 g/dL (3.4-5.0); ALKALINE PHOSPHATASE 62 U/L (46-116); ANION GAP < 0 mmol/L (7-16); BUN 53 mg/dL (7-18); CALCIUM 9.1 mg/dL (8.5-10.1); CHLORIDE 109 mmol/L (98-107); CO2 44 mmol/L (21-32); CREATININE 0.6 mg/dL (0.6-1.0); GLUCOSE 178 mg/dL (74-106); MAGNESIUM 2.6 mg/dL (1.8-2.4); PHOSPHORUS 2.7 mg/dL (2.5-4.9); POTASSIUM 4.9 mmol/L (3.5-5.1); SGOT 22 U/L (15-37); SGPT 18 U/L (30-65); SODIUM 150 mmol/L (136-145); TOTAL BILIRUBIN 0.2 mg/dL (<0.1-1.0); TOTAL PROTEIN 4.6 g/dL (6.4-8.2)
[2016-07-31 11:15] LABS: ABG SAMPLE TYPE ARTERIAL; BE(vivo) 10.8 mmol/L (-2 to +3); HCO3 37.4 mmol/L (22.0-26.0); O2(CT) 17.9 mL/dL (15.0-23.0); O2Hb 92.8 % (92.0-98.0); PCO2 57.8 mmHg (35.0-45.0); PO2 68.2 mmHg (80.0-100.0); pH 7.429 (7.360-7.450); sO2 93.7 % (92.0-98.0); tCO2 39.2 mmol/L (24.0-30.0)
[2016-07-31 11:16] LABS: STICK SITE L.RADIAL; TIDAL VOLUME 400 ml
[2016-08-01] VITALS (35 sets, daily range): BP systolic 48–152; BP diastolic 31–85
[2016-08-01 05:21] LABS: ABG SAMPLE TYPE ARTERIAL; BE(vivo) 10.2 mmol/L (-2 to +3); HCO3 39.1 mmol/L (22.0-26.0); LACTATE 0.91 mmol/L (0.5-2.0); O2(CT) 17.9 mL/dL (15.0-23.0); O2Hb 95.4 % (92.0-98.0); PO2 97.8 mmHg (80.0-100.0); pH 7.334 (7.360-7.450); sO2 96.7 % (92.0-98.0); tCO2 41.4 mmol/L (24.0-30.0)
[2016-08-01 05:22] LABS: PCO2 75.2 mmHg (35.0-45.0); STICK SITE L.RADIAL; TIDAL VOLUME 350 ml
[2016-08-01 06:36] LABS: ALBUMIN 1.9 g/dL (3.4-5.0); ANION GAP < 0 mmol/L (7-16); BUN 60 mg/dL (7-18); CALCIUM 9.3 mg/dL (8.5-10.1); CHLORIDE 110 mmol/L (98-107); CO2 42 mmol/L (21-32); CREATININE 0.5 mg/dL (0.6-1.0); GLUCOSE 150 mg/dL (74-106); PHOSPHORUS 3.7 mg/dL (2.5-4.9); POTASSIUM 5.2 mmol/L (3.5-5.1); SODIUM 149 mmol/L (136-145)
[2016-08-02] VITALS (28 sets, daily range): BP systolic 52–91; BP diastolic 33–52
[2016-08-02 04:56] LABS: ALBUMIN 1.5 g/dL (3.4-5.0); ANION GAP < 0 mmol/L (7-16); BUN 91 mg/dL (7-18); CALCIUM 9.4 mg/dL (8.5-10.1); CHLORIDE 108 mmol/L (98-107); CO2 42 mmol/L (21-32); CREATININE 0.8 mg/dL (0.6-1.0); GLUCOSE 154 mg/dL (74-106); PHOSPHORUS 3.5 mg/dL (2.5-4.9); POTASSIUM 5.4 mmol/L (3.5-5.1); SODIUM 149 mmol/L (136-145)
== END 2016-08-02 13:50 | DRG 870 ==
LOC: ER 03:56 → EROBS 06:30 → 4N 06:30 → ICU 06:30 → 4N 09:07 → ICU 07-22 11:24
PROVIDERS: Emergency Medicine; Family Medicine; Hospitalist; Internal Medicine Nephrology; Internal Medicine Pulmonary Disease
DX: A41.9 Sepsis, unspecified organism (principal); J18.9 Pneumonia, unspecified organism; E43 Unspecified severe protein-calorie malnutrition; I26.99 Other pulmonary embolism without acute cor pulmonale; J96.22 Acute and chronic respiratory failure with hypercapnia; J96.21 Acute and chronic respiratory failure with hypoxia; G93.40 Encephalopathy, unspecified; A04.7 Enterocolitis due to Clostridium difficile; E87.1 Hypo-osmolality and hyponatremia; E87.3 Alkalosis; E03.9 Hypothyroidism, unspecified; F41.9 Anxiety disorder, unspecified; K58.9 Irritable bowel syndrome, unspecified; J84.10 Pulmonary fibrosis, unspecified; E86.0 Dehydration; R65.20 Severe sepsis without septic shock; I95.9 Hypotension, unspecified; I27.81 Cor pulmonale (chronic); Z68.24 Body mass index [BMI] 24.0-24.9, adult; I27.2 Other secondary pulmonary hypertension; Z79.899 Other long term (current) drug therapy; Z90.721 Acquired absence of ovaries, unilateral; Z79.01 Long term (current) use of anticoagulants; Z66 Do not resuscitate; Z51.5 Encounter for palliative care
CPT/HCPCS: 10078; 10091; 27000